=== PATIENT | female | born 1985 | race Caucasian/White ===

== ENCOUNTER 2017-10-03 16:08 | Emergency (ER) | payer MEDICAID | END 2017-10-03 18:39 | disposition home or self-care (01) | LOC: FTE 16:08 | DX: R05 Cough (principal); R07.9 Chest pain, unspecified | CPT/HCPCS: 93005; 99284-25; Z7502 ==

== ENCOUNTER 2018-05-21 11:19 | Emergency (ER) | payer MEDICAID ==
[2018-05-21] MEDS: HYDROCODONE/APAP (5/325) TAB PO (12:53)
[2018-05-21] MEDS: LIDOCAINE 1% (MDV) 20 ML INJ SC (12:54)
== END 2018-05-21 13:45 | disposition home or self-care (01) ==
LOC: FTE 11:19
DX: L60.0 Ingrowing nail (principal)
CPT/HCPCS: 11765; 99283-25

== ENCOUNTER 2018-06-25 18:21 | Emergency (ER) | payer MEDICAID | END 2018-06-25 19:42 | disposition home or self-care (01) | LOC: FTE 18:21 | DX: L60.0 Ingrowing nail (principal) | CPT/HCPCS: 99283; Z7502 ==